=== PATIENT | male | born 2000 | race Caucasian/White ===

== ENCOUNTER → 2025-09-18 13:01 | Outpatient (CLI) | payer OTHER, SELFPAY | LOC: LAB 13:01 | PROVIDERS: Visit Provider Nurse Practitioner Family | DX: J02.9 Acute pharyngitis, unspecified (principal) | CPT/HCPCS: 87070 ==

== ENCOUNTER 2025-09-18 22:16 | Emergency (ER) | payer OTHER, SELFPAY ==
[2025-09-18 22:20] VITALS: BP 137/72; PULSE 108; RESP 22; TEMP 37.7; O2SAT 97; BMI 27.2
[2025-09-18 22:22] VITALS: PULSE 112; O2SAT 97
[2025-09-18 22:30] VITALS: BP 124/61; PULSE 92; RESP 21; O2SAT 97
[2025-09-18 23:00] VITALS: BP 119/64; PULSE 84; O2SAT 96
[2025-09-18 23:07] LABS: Appearance Urine UA CLEAR; Bilirubin Urine UA NEGATIVE (NEGATIVE); Color Urine UA YELLOW; Glucose Urine UA NEGATIVE (Negative); Ketones Urine UA NEGATIVE (NEGATIVE); Leukocyte Esterase Urine UA NEGATIVE (NEGATIVE); Nitrite Urine UA NEGATIVE (Negative); Occult Blood Urine UA NEGATIVE (Negative); Protein Urine UA NEGATIVE (Negative); Specific Gravity Urine UA 1.010 (1.000-1.035); Urobilinogen Urine UA 0.2 E.U./dL (0.2); pH Urine UA 6.5 (4.5-8.0)
[2025-09-18] MEDS: FAMOTIDINE 20 MG/2 ML VIAL IV (23:08)
[2025-09-18] MEDS: methylPREDNISolone succ 125 MG/2 ML VIAL IV (23:08)
[2025-09-18 23:14] LABS: Culture Indicated Urine Cult Not Indicated
[2025-09-18 23:18] LABS: Add Manual Diff / Slide Review NO; Hematocrit 40.9 % (41-53); Hemoglobin 14.6 g/dL (13.5-17.5); Lymphocytes Absolute Auto 900 /uL (1100-4500); Mean Corpuscular HGB Conc 35.7 % (30-36); Mean Corpuscular Hemoglobin 31.0 PG (26-34); Mean Corpuscular Volume 87.0 fL (80-100); Platelet Count 113 X10^3/uL (150-400)
--- NOTE | 2025-09-18 23:19 | ED_ITS ---
HPI - Allergic Reaction General Chief complaint: Allergic Reaction Stated complaint: Allergic reaction to antibiotic, tongue swelling Time Seen by Provider: 09/18/25 22:31 Source: patient Mode of arrival: Ambulatory History of Present Illness HPI narrative: Patient is a healthy 25-year-old male presenting today with diffuse rash. He reports that he got started on Bactrim for a prostate infection. He says that he was diagnosed with a prostate infection an urgent care. He was also started on Flomax but stopped Flomax has a gave him some heart palpitations. He reports that he was having difficulty with urination he had some dribbling at the end. He denies any penile discharge. He now has diffuse rash all over he has googled, in his concern for Jose Jamel syndrome. He does not have any mouth ulcers or desquamation. He reports that he feels like his lips and tongue are a little bit swollen but he is managing his secretions in the eating and drinking normally. Related Data Home Medications ?Medication ?Instructions ?Recorded ?Confirmed fluoxetine 20 mg capsule 20 mg PO DAILY 02/05/2509/06 Previous Rx's ?Medication ?Instructions ?Recorded prednisone 20 mg tablet 40 mg (2 x 20 mg) PO DAILY # 10 tabs 09/19/25 Allergies Allergy/AdvReac Type Severity Reaction Status Date / Time sulfamethoxazole (From AdvReac Intermediate Rash Verified 09/18/25 11:40 Bactrim) trimethoprim (From Bactrim) AdvReac Intermediate Rash Verified 09/18/25 11:40 Patient History Social History Smoking Status: Current every day smoker Smoking Status: Current every day smoker tobacco type: vaping Exam Initial Vital Signs Initial Vital Signs: Vital Signs Temperature 99.9 F H 09/18/25 22:20 Pulse Rate 108 H 09/18/25 22:20 Respiratory Rate 22 09/18/25 22:20 Blood Pressure 137/72 09/18/25 22:20 Pulse Oximetry 97 09/18/25 22:20 Oxygen Delivery Method Room Air 09/18/25 22:20 GENERAL: Well-appearing, well-nourished and in no acute distress. HEENT: Head atraumatic,EOMI, pupils reactive, face symmetric, moist mucous membranes CARDIOVASCULAR: Regular rate and rhythm without murmurs, rubs or gallops. RESPIRATORY: Breath sounds equal bilaterally, no wheezes rales or rhonchi. ABDOMEN: Soft, nontender. Normoactive bowel sounds all 4 quadrants. No guarding or rebound. EXTREMITIES: Normal range of motion, no clubbing or edema. Neurovascularly intact NEUROLOGICAL: Alert and oriented x4.Normal gait and speech. Cranial nerves II through XII grossly intact. SKIN: Diffuse area blanchable all over extremities abdomen and torso Course Orders Ordered: ED Orders 09/18/25 22:30 CBC Auto Diff [Complete Blood Count AUTO DIFF] Stat CMP [Comprehensive Metabolic Panel] Stat 09/18/25 22:56 Chlamydia Gonorrhea PCR -URINE Stat UA Complete [Urinalysis and Microscopic] Stat Discontinued Medications Diphenhydramine HCl (Diphenhydramine 50 Mg/Ml Vial) 25 mg IV NOW ONE Stop: 09/19/25 00:10 Last Admin: 09/19/25 00:16 Dose: 25 mg Documented By: TAMARA Famotidine (Famotidine 20 Mg/2 Ml Vial) 20 mg IV NOW ESTUARDO Last Admin: 09/18/25 23:08 Dose: 20 mg Documented By: FRANCIS Methylprednisolone (Methylprednisolone Succ 125 Mg/2 Ml Vial) 125 mg IV NOW ONE Stop: 09/18/25 22:57 Last Admin: 09/18/25 23:08 Dose: 125 mg Documented By: FRANCIS Vital Signs Vital signs: Vital Signs - 8 hr 09/18/25 22:20 09/18/25 22:22 09/18/25 22:30 Temperature 99.9 F H Pulse Rate 108 H 112 H Respiratory Rate 22 Blood Pressure 137/72 124/61 Pulse Oximetry 97 97 Oxygen Delivery Method Room Air 09/18/25 22:30 09/18/25 23:00 09/18/25 23:00 Temperature Pulse Rate 92 H 84 Respiratory Rate 21 Blood Pressure 119/64 Pulse Oximetry 97 96 Oxygen Delivery Method 09/18/25 23:30 09/18/25 23:30 09/19/25 00:00 Temperature Pulse Rate 82 Respiratory Rate 24 Blood Pressure 110/60 103/56 L Pulse Oximetry 96 Oxygen Delivery Method 09/19/25 00:00 09/19/25 00:30 09/19/25 00:30 Temperature Pulse Rate 78 80 Respiratory Rate 22 Blood Pressure 107/64 Pulse Oximetry 96 97 Oxygen Delivery Method 09/19/25 01:12 Temperature Pulse Rate 76 Respiratory Rate 16 Blood Pressure 108/60 Pulse Oximetry 98 Oxygen Delivery Method Room Air MDM - Allergic Reaction Lab Data 09/18/25 22:30 09/18/25 22:30 Labs: Lab Results 09/18/25 09/18/25 Range/Units 22:30 22:56 WBC 4.1 L (4.5-11.0) X10^3/uL RBC 4.71 (4.5-5.9) X10^6/uL Hgb 14.6 (13.5-17.5) g/dL Hct 40.9 L (41-53) % MCV 87.0 (80-100) fL MCH 31.0 (26-34) PG MCHC 35.7 (30-36) % RDW 12.8 (11.6-14.8) % Plt Count 113 L (150-400) X10^3/uL Neut % (Auto) 59.5 (50-75) % Lymph % (Auto) 22.6 L (25-40) % [place] % (Auto) 13.2 (3-14) % Eos % (Auto) 4.4 H (2-4) % Baso % (Auto) 0.3 (0-2) % Neut # (Auto) 2400 (2915-1679) /uL Lymph # (Auto) 900 L (0306-8351) /uL [place] # (Auto) 500 (0-900) /uL Eos # (Auto) 200 (0-450) /uL Baso # (Auto) 0 (0-100) /uL Sodium 136 L (137-145) mmol/L Potassium 4.0 (3.4-5.1) mmol/L Chloride 103 (98-107) mmol/L Carbon Dioxide 22 (22-32) mmol/L BUN 10 (9-20) mg/dL Creatinine 0.88 (0.66-1.25) mg/dL Estimated GFR > 60 (>60) mL/min BUN/Creatinine Ratio 11.4 (6-22) Glucose 116 H (70-99) mg/dL Calcium 9.4 (8.4-10.2) mg/dL Total Bilirubin 0.5 (0.2-1.3) mg/dL AST 24 (17-59) IU/L ALT 27 (<50) IU/L Alkaline Phosphatase 51 (38-126) U/L Total Protein 7.6 (6.3-8.2) g/dL Albumin 4.6 (3.5-5.0) g/dL Globulin 3.0 (1.7-4.1) g/dL Albumin/Globulin Ratio 1.5 (1.0-2.8) Urine Color Yellow Urine Appearance Clear Urine pH 6.5 (4.5-8.0) Ur Specific [place] 1.010 (1.000-1.035) Urine Protein Negative (Negative) Urine Glucose (UA) Negative (Negative) g/dL Urine Ketones Negative (NEGATIVE) Urine Occult Blood Negative (Negative) Urine Nitrate Negative (Negative) Urine Bilirubin Negative (NEGATIVE) Urine Urobilinogen 0.2 (0.2) E.U./dL Ur Leukocyte Esterase Negative (NEGATIVE) Urine RBC None seen (0-5/HPF) Urine WBC None seen (0-5/HPF) Ur Squamous Epith Cells None seen (0-5/HPF) Urine Bacteria None seen (None) Ur Culture Indicated? Cult not indicated Vol Urine Centrifuged 10ml (spun) Ur Chlamydia DNA (PCR) Not detected N gonorrhoeae DNA (PCR) Not detected Urine Dip Bedside Urine Glucose Negative Bedside Urine Bilirubin - Negative Bedside Urine Ketone - Negative Urine Specific [place] 1.010 Bedside Urine Occult Blood - Negative Bedside Urine pH 6.0 Bedside Urine Protein - Negative Bedside Urine Urobilinogen - Negative Bedside Urine Nitrite - Negative Bedside Urine Leukocytes - Negative Esterase MDM Narrative Medical decision making narrative: Patient is a healthy 25-year-old male presenting to [facility] with rash. He was placed on Bactrim for possible prostatitis. He has no evidence of anaphylaxis but does have significant urticaria all over body. He was given Solu-Medrol Pepcid but still itching given another dose of Benadryl. At this time there is no evidence of Jose Jamel syndrome. Blood work has been reviewed no leukocytosis no electrolyte abnormalities urinalysis is negative for UTI and gonorrhea/chlamydia At this time no need for ongoing antibiotics. Given prescription for prednisone. Discharge Plan Departure Patient Disposition: Home Clinical Impression: Allergic reaction Instructions: DI for Hives Activity Restrictions/Additional Instructions: *You have been diagnosed with allergic reaction *What to do: At this time you have no need for any further antibiotics your blood work done urine are overall reassuring *Continue to take medications as directed Prednisone 40 mg once a day for 5 days Benadryl 25-50 mg every 6 hours needed for itching *Follow up with your primary care provider in 2-3 days or call [phone] *Return to ER if you should have worsening rash difficulty breathing tongue swelling lip swelling [or] any new, worsening or concerning symptoms Prescriptions: New prednisone 20 mg tablet 40 mg PO DAILY Qty: 10 0RF No Action fluoxetine 20 mg capsule 20 mg PO DAILY Referrals: Miscellaneous,Doctor, [Primary Care Provider, Medical] Stand Alone Forms: Patient Portal/API
[2025-09-18 23:24] LABS: Alanine Aminotransferase 27 IU/L (<50); Albumin 4.6 g/dL (3.5-5.0); Albumin Globulin Ratio 1.5 (1.0-2.8); Alkaline Phosphatase 51 U/L (38-126); Blood Urea Nitrogen 10 mg/dL (9-20); Calcium 9.4 mg/dL (8.4-10.2); Carbon Dioxide 22 mmol/L (22-32); Chloride 103 mmol/L (98-107); Estimated Glomerular Filt Rate > 60 mL/min (>60); Globulin 3.0 g/dL (1.7-4.1); Glucose 116 mg/dL (70-99); HEMOLYSIS < 15 (0-50); Potassium 4.0 mmol/L (3.4-5.1); Sodium 136 mmol/L (137-145); Total Protein 7.6 g/dL (6.3-8.2)
[2025-09-18 23:30] VITALS: BP 110/60; PULSE 82; RESP 24; O2SAT 96
[2025-09-19] VITALS: BP 103/56; PULSE 78; O2SAT 96
[2025-09-19] MEDS: diphenhydrAMINE 50 MG/ML VIAL 25 MG IV (00:16)
[2025-09-19 00:30] VITALS: BP 107/64; PULSE 80; RESP 22; O2SAT 97
[2025-09-19 00:36] LABS: Urine N gonorrhoeae NOT DETECTED
[2025-09-19 00:41] LABS: Urine Chlamydia NOT DETECTED
[2025-09-19 01:12] VITALS: BP 108/60; PULSE 76; RESP 16; O2SAT 98
== END 2025-09-19 01:16 | disposition home or self-care (01) ==
PROVIDERS: Emergency Provider Emergency Medicine
DX: T78.40XA Allergy, unspecified, initial encounter (principal); L50.9 Urticaria, unspecified
CPT/HCPCS: 36415; 80053; 81001; 81003; 85025; 87070; 87491; 87591; 96374; 96375; 99284; J1200; J2919